=== PATIENT | female | born 1940 | race Caucasian/White ===

== ENCOUNTER → 2017-04-18 | Outpatient (CLI) | payer MEDICARE, BC ==
[~2017-04-18] MED LIST: AMLO10TA2 PO; CHOL200012 PO; GLUC1CAP13 PO; HYDR-3138 PO; LISI1TAB7 PO; MELO-184 PO; MEMA10TA PO; OMNIPAQUE 350 MG/ML, 100ML BOTTLE ONE
== END | disposition home or self-care (01) ==
LOC: CFH 09:01
PROVIDERS: ATTEND Family Medicine
DX: N83.202 Unspecified ovarian cyst, left side (principal); K76.89 Other specified diseases of liver; D18.03 Hemangioma of intra-abdominal structures; M47.894 Other spondylosis, thoracic region; Z95.0 Presence of cardiac pacemaker
CPT/HCPCS: 71020; 74177; Q9967

== ENCOUNTER → 2017-06-14 | Outpatient (CLI) | payer MEDICARE, BC ==
[~2017-06-14] MED LIST changes: -OMNIPAQUE 350 MG/ML, 100ML BOTTLE ONE
== END | disposition home or self-care (01) ==
LOC: CFH 13:01
PROVIDERS: ATTEND Family Medicine
DX: I08.3 Combined rheumatic disorders of mitral, aortic and tricuspid valves (principal); R60.0 Localized edema; I25.2 Old myocardial infarction; Z95.0 Presence of cardiac pacemaker; Z87.891 Personal history of nicotine dependence
CPT/HCPCS: 93306

== ENCOUNTER → 2017-06-25 | Outpatient (CLI) | payer MEDICARE, BC ==
[~2017-06-25] MED LIST changes: -CHOL200012 PO; +CHOL200074 PO; -HYDR-3138 PO; +HYDR-3237 PO; -MELO-184 PO; +MELO15TA24 PO
== END | disposition home or self-care (01) ==
LOC: CFH 11:38
PROVIDERS: ATTEND Family Medicine
DX: R94.4 Abnormal results of kidney function studies (principal)
CPT/HCPCS: 76770

== ENCOUNTER → 2017-07-19 | Outpatient (CLI) | payer MEDICARE, BC | END | disposition home or self-care (01) | LOC: RAD 17:20 | PROVIDERS: ATTEND Family Medicine | DX: M17.12 Unilateral primary osteoarthritis, left knee (principal) ==

== ENCOUNTER → 2017-12-06 | Outpatient (CLI) | payer MEDICARE, BC ==
[2017-12-06 10:08] LABS: BASOPHILS % (AUTO) 0 % (0-1); EOSINOPHILS # (AUTO) 0.02 x10^3/uL (0-0.4); EOSINOPHILS % (AUTO) 1 % (1-7); LYMPHOCYTES # (AUTO) 0.93 x10^3/uL (1-3.4); LYMPHOCYTES % (AUTO) 21 % (22-44); MD NO; MEAN CORPUSCULAR HEMOGLOBIN 31.6 pg (27.0-34.8); MEAN CORPUSCULAR HGB CONC 33.8 g/dL (32.4-35.8); MEAN CORPUSCULAR VOLUME 93.5 fL (80-100); MEAN PLATELET VOLUME 8.4 fL (7.4-10.4); MONOCYTES % (AUTO) 9 % (2-9); NEUTROPHILS # (AUTO) 3.08 x10^3/uL (1.8-6.8); NEUTROPHILS % (AUTO) 69 % (42-75); PLATELET COUNT 172 x10^3/uL (130-400); RED BLOOD COUNT 4.26 x10^6/uL (3.82-5.3); RED CELL DISTRIBUTION WIDTH 12.9 % (9.6-15.2)
[2017-12-06 10:13] LABS: MICROSCOPIC INDICATED
[2017-12-06 10:21] LABS: ALBUMIN 3.6 g/dL (3.4-5.0); ANION GAP 9 mmol/L (5-15); CHLORIDE 106 mmol/L (98-107); CHOLESTEROL, TOTAL 242 mg/dL (140-239); TRIGLYCERIDES 146 mg/dL (50-200); VLDL CHOLESTEROL 29 mg/dL (0-25)
[2017-12-06 10:25] LABS: % IRON SATURATION 17 % (20-55); ALANINE AMINOTRANSFERASE 34 U/L (12-78); ALKALINE PHOSPHATASE 83 U/L (45-117); BILIRUBIN,TOTAL 0.7 mg/dL (0.2-1.0); CHOL/HDL RATIO 3.6; CREATININE 1.24 mg/dL (0.55-1.02); HDL CHOL % 28 % (28-40); HDL CHOLESTEROL (DIRECT) 68 mg/dL (40-60); IRON LEVEL 61 mcg/dL (50-170); LDL CHOLESTEROL,CALCULATED 145 mg/dL (54-169); LDL/HDL RATIO 2.1 (0.5-3.0); TOTAL IRON BINDING CAPACITY 365 mcg/dL (250-450)
[2017-12-06 11:23] LABS: CALCIUM 8.7 mg/dL (8.5-10.1)
[2017-12-06 11:25] LABS: CALCIUM 8.7 mg/dL (8.5-10.1)
== END | disposition home or self-care (01) ==
LOC: LAB 09:33
PROVIDERS: ATTEND Surgery
DX: I12.9 Hypertensive chronic kidney disease with stage 1 through stage 4 chronic kidney disease, or unspecified chronic kidney disease (principal); N18.3 Chronic kidney disease, stage 3 (moderate); E78.3 Hyperchylomicronemia; I25.2 Old myocardial infarction; Z95.0 Presence of cardiac pacemaker; R79.89 Other specified abnormal findings of blood chemistry
CPT/HCPCS: 36415; 80053; 80061; 81001; 82306; 82310; 82570; 82728; 83540; 83550; 83735; 83970; 84100; 84156; 84550; 85025

== ENCOUNTER 2018-03-21 09:38 | Inpatient (IN) | payer MEDICARE, BC ==
[2018-03-19 14:59] LABS: BASOPHILS # (AUTO) 0.01 x10^3/uL (0-0.1); BASOPHILS % (AUTO) 0 % (0-1); EOSINOPHILS # (AUTO) 0.01 x10^3/uL (0-0.4); EOSINOPHILS % (AUTO) 0 % (1-7); LYMPHOCYTES # (AUTO) 1.46 x10^3/uL (1-3.4); LYMPHOCYTES % (AUTO) 31 % (22-44); MD NO; MEAN CORPUSCULAR HGB CONC 34.3 g/dL (32.4-35.8); MEAN CORPUSCULAR VOLUME 93.4 fL (80-100); MEAN PLATELET VOLUME 8.4 fL (7.4-10.4); MONOCYTES # (AUTO) 0.33 x10^3/uL (0.2-0.8); MONOCYTES % (AUTO) 7 % (2-9); NEUTROPHILS # (AUTO) 2.97 x10^3/uL (1.8-6.8); NEUTROPHILS % (AUTO) 62 % (42-75); PLATELET COUNT 199 x10^3/uL (130-400); RED BLOOD COUNT 4.44 x10^6/uL (3.82-5.3); RED CELL DISTRIBUTION WIDTH 13.4 % (9.6-15.2)
[2018-03-19 15:10] LABS: ALANINE AMINOTRANSFERASE 31 U/L (12-78); ALBUMIN 3.7 g/dL (3.4-5.0); ANION GAP 8 mmol/L (5-15); CALCIUM 9.2 mg/dL (8.5-10.1); CHLORIDE 106 mmol/L (98-107)
[2018-03-19 15:12] LABS: ALKALINE PHOSPHATASE 75 U/L (45-117); BILIRUBIN,TOTAL 0.8 mg/dL (0.2-1.0); CREATININE 1.25 mg/dL (0.55-1.02); TOTAL PROTEIN 7.4 g/dL (6.4-8.2)
[2018-03-19 15:15] LABS: INTERNATIONAL NORMALIZED RATIO 0.95 (0.93-1.1); PROTHROMBIN TIME 9.9 Seconds (9.6-11.5)
[2018-03-19 15:50] LABS: HEMOGLOBIN A1C 5.8 % (4.2-6.3)
[~2018-03-21] VITALS: Ht 172.7 cm; Wt 74.0 kg
[~2018-03-21 09:38] MED LIST changes: +EPINEPHRINE 1 MG/ML, 1ML ONE; +KETOROLAC 60 MG/2 ML ONE; +ROPIvacaine/PF 0.5%, 20 ML ONE; +SODIUM CHLORIDE 0.9% 100 ML ONE; +TRANEXAMIC ACID 100 MG/ML, 10ML ONE
[2018-03-21] MEDS ORDERED: VANCOMYCIN PER PHARMACY MC ONE (09:47)
[2018-03-21] MEDS ORDERED: LACTATED RINGERS 1,000 ML IV SCH (09:59)
[2018-03-21] MEDS ORDERED: OXYcodone IR 5MG TABLET PO ONE (10:00)
[2018-03-21] MEDS ORDERED: VANCOMYCIN 1,400 MG in SODIUM CHLORIDE 0.9% 250 ML IV ONE (10:00)
[2018-03-21] MEDS ORDERED: ONDANSETRON ODT 8 MG PO ONE (10:00)
[2018-03-21] MEDS ORDERED: ACETAMINOPHEN 500 MG TABLET PO ONE (10:00)
[2018-03-21] MEDS ORDERED: PHARMACOKINETIC CONSULTATION MC ONE (10:00)
[2018-03-21] MEDS ORDERED: GABAPENTIN 300 MG CAPSULE PO ONE (10:00)
[2018-03-21 10:24] VITALS: BP 199/77
[2018-03-21] MEDS ORDERED: HALOPERIDOL 5 MG/ML IV PRN (11:00)
[2018-03-21] MEDS ORDERED: hydrALAzine 20 MG/ML, 1ML IV PRN (11:00)
[2018-03-21] MEDS ORDERED: METOPROLOL 1 MG/ML, 5ML IV PRN (11:00)
[2018-03-21] MEDS ORDERED: PROMETHAZINE 25 MG/ML, 1ML IV PRN (11:00)
[2018-03-21] MEDS ORDERED: OXYcodone 5 MG/5 ML ORAL.SOL UDC PO PRN (11:00)
[2018-03-21] MEDS ORDERED: ALBUTEROL SULFATE 2.5 MG/3 ML NPPB PRN (11:00)
[2018-03-21] MEDS ORDERED: EPHEDRINE 50 MG/ML, 1ML IVPush PRN (11:00)
[2018-03-21] MEDS ORDERED: LABETALOL 5MG/ML, 20ML IV PRN (11:00)
[2018-03-21] MEDS ORDERED: FENTANYL PF 250 MCG/5ML ONE (11:21)
[2018-03-21] MEDS ORDERED: GLYCOPYRROLATE 0.2MG/1ML, 5ML ONE (11:51)
[2018-03-21] MEDS ORDERED: NEOSTIGMINE 1 MG/ML, 10ML ONE (11:51)
[2018-03-21] MEDS ORDERED: ZOLPIDEM 5MG TABLET PO PRN (12:00)
[2018-03-21] MEDS ORDERED: CEFAZOLIN 1,000 MG ONE (12:00)
[2018-03-21] MEDS ORDERED: MAGNESIUM HYDROXIDE 8%, 30ML UDC PO PRN (12:00)
[2018-03-21] MEDS ORDERED: OXYcodone IR 5MG TABLET PO PRN (12:00)
[2018-03-21] MEDS ORDERED: ONDANSETRON 4 MG TABLET PO PRN (12:00)
[2018-03-21] MEDS ORDERED: BISACODYL 10 MG SUPP PR PRN (12:00)
[2018-03-21] MEDS ORDERED: HYDROcodone/APAP 5/325 TABLET PO PRN (12:00)
[2018-03-21] MEDS ORDERED: PROPOFOL 10 MG/ML, 20ML ONE ×2 (12:00→12:03)
[2018-03-21] MEDS ORDERED: SENNA/DOCUSATE TABLET PO PRN (12:00)
[2018-03-21] MEDS ORDERED: ONDANSETRON 2MG/ML, 2ML IV PRN (12:00)
[2018-03-21] MEDS ORDERED: DIPHENHYDRAMINE 25 MG CAPSULE PO PRN (12:00)
[2018-03-21] MEDS ORDERED: HYDROmorphone 2 MG/ML, 1ML IV PRN (12:00)
[2018-03-21] MEDS ORDERED: ROCURONIUM 10MG/ML,5ML ONE (12:03)
[2018-03-21] MEDS ORDERED: VANCOMYCIN 1,000 MG ONE (12:37)
[2018-03-21] MEDS ORDERED: DEXAMETHASONE 4 MG/ML, 1ML ONE (13:22)
[2018-03-21] MEDS ORDERED: MEPERIDINE/PF 25MG/0.5ML ONE ×2 (13:35→14:11)
[2018-03-21] MEDS ORDERED: FENTANYL PF 100 MCG/2ML ONE (13:35)
[2018-03-21] MEDS ORDERED: MORPHINE SULFATE 4 MG/ML, 1ML ONE ×2 (13:35→14:11)
[2018-03-21] MEDS: FENTANYL PF 100 MCG/2ML IV PRN ×3 (13:42→14:05)
[2018-03-21] MEDS: MORPHINE SULFATE 4 MG/ML, 1ML IVPush PRN ×2 (13:45→13:50)
[2018-03-21] MEDS ORDERED: OXYcodone 5 MG/5 ML ORAL.SOL UDC ONE (13:46)
[2018-03-21] MEDS ORDERED: MEPERIDINE/PF 25MG/0.5ML IVPush PRN (14:30)
[2018-03-21 14:50] VITALS: BP 148/64
[2018-03-21] MEDS ORDERED: SCOPOLAMINE PATCH, 1.5MG PATCH.TD72 TD ONE (16:00)
[2018-03-21] MEDS: NS + 20MEQ KCL 1,000 ML IV SCH (16:46)
[2018-03-21] MEDS: ASPIRIN 81 MG TABLET EC PO SCH (16:46)
[2018-03-21 19:35] VITALS: BP 154/78
[2018-03-21] MEDS: DOCUSATE 100 MG CAPSULE PO SCH (20:49)
[2018-03-21] MEDS: MEMANTINE 10MG TABLET PO SCH (20:49)
[2018-03-21] MEDS: AMLODIPINE 5 MG TABLET PO SCH (20:50)
[2018-03-21] MEDS: CEFAZOLIN PMX 2GM/50ML 50 ML IVPB SCH (20:50)
[2018-03-22 00:50] VITALS: BP 175/74
[2018-03-22] MEDS: NS + 20MEQ KCL 1,000 ML IV SCH ×2 (04:30→18:33)
[2018-03-22] MEDS: CEFAZOLIN PMX 2GM/50ML 50 ML IVPB SCH (04:36)
[2018-03-22 04:51] VITALS: BP 168/66
[2018-03-22] MEDS: ASPIRIN 81 MG TABLET EC PO SCH ×2 (05:19→18:37)
[2018-03-22] MEDS ORDERED: DEXAMETHASONE 4 MG/ML, 1ML IVPush SCH (06:00)
[2018-03-22 06:31] VITALS: BP 182/51
[2018-03-22] MEDS: DOCUSATE 100 MG CAPSULE PO SCH ×2 (08:57→20:48)
[2018-03-22] MEDS: MEMANTINE 10MG TABLET PO SCH ×2 (08:57→20:56)
[2018-03-22] MEDS: LISINOPRIL 20 MG TABLET PO SCH (08:57)
[2018-03-22] MEDS: HYDROCHLOROTHIAZIDE 25 MG TABLET PO SCH (08:57)
[2018-03-22] MEDS ORDERED: LISINOPRIL 20 MG TABLET PO SCH (09:00)
[2018-03-22] MEDS ORDERED: OXYC5TAB2 PO (10:26)
[2018-03-22] MEDS ORDERED: TRAM50TA2 PO (10:27)
[2018-03-22] MEDS ORDERED: MELO7.5T31 PO (10:28)
[2018-03-22 14:05] VITALS: BP 107/60
[2018-03-22 20:46] VITALS: BP 149/60
[2018-03-22] MEDS: AMLODIPINE 5 MG TABLET PO SCH (20:48)
[2018-03-22] MEDS: ACETAMINOPHEN 650 MG/20.3 ML UDC PO PRN (20:48)
[2018-03-23 01:49] VITALS: BP 164/70
[2018-03-23] MEDS: NS + 20MEQ KCL 1,000 ML IV SCH (03:35)
[2018-03-23] MEDS: ACETAMINOPHEN 650 MG/20.3 ML UDC PO PRN (05:04)
[2018-03-23] MEDS: ASPIRIN 81 MG TABLET EC PO SCH (06:00)
[2018-03-23 07:13] VITALS: BP 173/66
[2018-03-23] MEDS: HYDROCHLOROTHIAZIDE 25 MG TABLET PO SCH (09:15)
[2018-03-23] MEDS: MEMANTINE 10MG TABLET PO SCH (09:15)
[2018-03-23] MEDS: LISINOPRIL 20 MG TABLET PO SCH (09:15)
[2018-03-23] MEDS: DOCUSATE 100 MG CAPSULE PO SCH (09:15)
== END 2018-03-23 11:40 | disposition home or self-care (01) | DRG 469 ==
LOC: OUT 09:38 → ORIP 11:45 → 4NOR 14:44
PROVIDERS: ADMIT Orthopaedic Surgery; ATTEND Orthopaedic Surgery
PROC: 0SRC0J9 Replacement of Right Knee Joint with Synthetic Substitute, Cemented, Open Approach (ICD-10-PCS; principal; 2018-03-21 12:15)
DX: M17.31 Unilateral post-traumatic osteoarthritis, right knee (principal); N17.0 Acute kidney failure with tubular necrosis; F03.90 Unspecified dementia, unspecified severity, without behavioral disturbance, psychotic disturbance, mood disturbance, and anxiety; I10 Essential (primary) hypertension; I25.10 Atherosclerotic heart disease of native coronary artery without angina pectoris; Z88.0 Allergy status to penicillin; Z95.0 Presence of cardiac pacemaker
CPT/HCPCS: 36415; 80053; 83036; 85014; 85018; 85025; 85610; 85730; 87081; 93005; C1713; J0171; J0690; J1100; J1885; J2704; J2710; J2795; J3010; J3370; J3480; J3490; Q0162; C1776; J7050; J7120; Q0163

== ENCOUNTER 2019-03-05 12:28 | Emergency (ER) | payer MEDICARE, BC ==
[~2019-03-05] VITALS: Ht 172.7 cm; Wt 72.7 kg
[~2019-03-05 12:28] MED LIST changes: -AMLO10TA2 PO; +AMLO10TA8 PO; -EPINEPHRINE 1 MG/ML, 1ML ONE; -KETOROLAC 60 MG/2 ML ONE; +MELO7.5T31 PO; +OXYC5TAB2 PO; -ROPIvacaine/PF 0.5%, 20 ML ONE; -SODIUM CHLORIDE 0.9% 100 ML ONE; +TRAM50TA2 PO; -TRANEXAMIC ACID 100 MG/ML, 10ML ONE
--- NOTE | 2019-03-05 12:50 | NUR ---
PATIENT PRESENTS TO ED TODAY FOR 4-5 SYNCOPAL EPISODES PER SPOUSE AT BEDSIDE, DENIES PAIN/HITTING HEAD, PATIENT TAKING ABX (KEFLEX) FOR RECENT TOE INFECTION (LT MIDDLE TOE), PATIENT AWAKE, ALERT, ORIENTED X1, PATIENT RESPONDS TO VOICE AND FOLLOWS COMMANDS, BASELINE CONFUSION BUT WORSE PAST 2 DAYS PER SPOUSE, PLAYER MANAGER ON PATIENT, AWAITING ORDERS. CALL LIGHT WITHIN REACH. Addendum: 03/05/19 at 1316 by REFUGIO PATIENT SPOUSE REPORTS LOC FOR 1-2 MIN. PATIENT NEVER FELL, LOWERED SELF ON BED.
--- NOTE | 2019-03-05 13:34 | NUR ---
PATIENT IN CT AT THIS TIME.
--- NOTE | 2019-03-05 14:01 | NUR ---
LAB AT BEDSIDE.
[2019-03-05 14:20] LABS: BASOPHILS # (AUTO) 0.02 x10^3/uL (0-0.1); BASOPHILS % (AUTO) 0 % (0-1); EOSINOPHILS # (AUTO) 0.02 x10^3/uL (0-0.4); EOSINOPHILS % (AUTO) 0 % (1-7); LYMPHOCYTES % (AUTO) 22 % (22-44); MD NO; MEAN CORPUSCULAR HEMOGLOBIN 32.2 pg (27.0-34.8); MEAN CORPUSCULAR HGB CONC 33.9 g/dL (32.4-35.8); MEAN PLATELET VOLUME 7.9 fL (7.4-10.4); MONOCYTES # (AUTO) 0.43 x10^3/uL (0.2-0.8); MONOCYTES % (AUTO) 9 % (2-9); NEUTROPHILS # (AUTO) 3.41 x10^3/uL (1.8-6.8); NEUTROPHILS % (AUTO) 69 % (42-75); PLATELET COUNT 170 x10^3/uL (130-400); RED BLOOD COUNT 3.96 x10^6/uL (3.82-5.3); RED CELL DISTRIBUTION WIDTH 13.3 % (9.6-15.2)
--- NOTE | 2019-03-05 14:20 | NUR ---
STRAIGHT CATH COMPLETED, WALKED TO LAB. AWAITING RESULTS. VS UPDATED IN CHART, PATIENT/FAMILY UPDATED ON POC. NAD NOTED.
[2019-03-05 14:28] LABS: ALANINE AMINOTRANSFERASE 23 U/L (12-78); ALBUMIN 3.3 g/dL (3.4-5.0); ANION GAP 9 mmol/L (5-15); CALCIUM 8.7 mg/dL (8.5-10.1); CHLORIDE 108 mmol/L (98-107); CREATININE 1.17 mg/dL (0.55-1.02)
[2019-03-05 14:31] LABS: ALKALINE PHOSPHATASE 57 U/L (45-117); BILIRUBIN,TOTAL 0.7 mg/dL (0.2-1.0); TOTAL PROTEIN 6.4 g/dL (6.4-8.2)
[2019-03-05 14:55] LABS: MICROSCOPIC NOT IND
[2019-03-05 14:56] LABS: CULTURE INDICATED? NO
[2019-03-05 15:05] LABS: AMPHETAMINE SCREEN, URINE Negative (Negative); BARBITURATE SCREEN, URINE Negative (Negative); BENZODIAZEPINE SCREEN, URINE Positive (Negative); CANNABINOID SCREEN, URINE Negative (Negative); COCAINE SCREEN, URINE Negative (Negative); METHADONE SCREEN, URINE Negative (Negative); OPIATE SCREEN, URINE Negative (Negative)
--- NOTE | 2019-03-05 15:50 | NUR ---
THIS FLOAT RN AT BEDSIDE TO DC PT FOR PRIMARY RNANN. PT AND SPOUSE VERBALIZED UNDERSTANDING TO DC INSTRUCTIONS.
[2019-03-05 15:52] VITALS: BP 162/59
== END 2019-03-05 15:54 | disposition home or self-care (01) ==
LOC: ED 14:09
DX: F03.90 Unspecified dementia, unspecified severity, without behavioral disturbance, psychotic disturbance, mood disturbance, and anxiety (principal); R53.1 Weakness; I10 Essential (primary) hypertension; I25.2 Old myocardial infarction; E78.00 Pure hypercholesterolemia, unspecified; Z88.8 Allergy status to other drugs, medicaments and biological substances; Z90.89 Acquired absence of other organs; Z87.891 Personal history of nicotine dependence
CPT/HCPCS: 36415; 70450; 80053; 80307; 81003; 82140; 85025; 93005; 99284

== ENCOUNTER 2019-05-27 18:01 | Emergency (ER) | payer MEDICARE, BC ==
[~2019-05-27] VITALS: Ht 172.7 cm; Wt 71.1 kg
[~2019-05-27 18:01] MED LIST changes: +LISI1TAB20 PO; -LISI1TAB7 PO
[2019-05-27] MEDS ORDERED: METOPROLOL TARTRATE 50 MG TABLET PO ONE (18:30)
--- NOTE | 2019-05-27 18:31 | NUR ---
UPON ENTERING ROOM PTS FOUND IN THE CABINETS. IS ASKED IF HE NEEDS ANY HELP. DECLINES AND IS SEEN PLACING 2X2 GAUZE IN HIS POCKET. PT PLACED ON NIBP AND PULSE OX MONITORING. ASKS WHAT FOR WE ARE GOING TO BE QUICK IN AND OUT. EDUCATUION PROVIDED. STATES "AREN'T YOU JUST GOING TO GIVE HER A FEEL GOOD PILLS AND LET US GET OUT OF HERE?" ANSWERS ALL QUESTIONS FOR ASSESSMENT DISPITE BEING ASKED TO LET THE PATIENT.
[2019-05-27] MEDS ORDERED: METOPROLOL TARTRATE 50 MG TABLET ONE (18:36)
[2019-05-27 19:00] LABS: BASOPHILS # (AUTO) 0.01 x10^3/uL (0-0.1); BASOPHILS % (AUTO) 0 % (0-1); EOSINOPHILS # (AUTO) 0.02 x10^3/uL (0-0.4); EOSINOPHILS % (AUTO) 0 % (1-7); LYMPHOCYTES # (AUTO) 1.02 x10^3/uL (1-3.4); LYMPHOCYTES % (AUTO) 22 % (22-44); MD NO; MEAN CORPUSCULAR HEMOGLOBIN 32.4 pg (27.0-34.8); MEAN CORPUSCULAR HGB CONC 33.5 g/dL (32.4-35.8); MEAN CORPUSCULAR VOLUME 96.7 fL (80-100); MEAN PLATELET VOLUME 8.2 fL (7.4-10.4); MONOCYTES # (AUTO) 0.47 x10^3/uL (0.2-0.8); MONOCYTES % (AUTO) 10 % (2-9); NEUTROPHILS # (AUTO) 3.09 x10^3/uL (1.8-6.8); NEUTROPHILS % (AUTO) 67 % (42-75); PLATELET COUNT 171 x10^3/uL (130-400); RED BLOOD COUNT 4.29 x10^6/uL (3.82-5.3); RED CELL DISTRIBUTION WIDTH 13.3 % (9.6-15.2)
[2019-05-27 19:06] LABS: ALBUMIN 3.8 g/dL (3.4-5.0); ANION GAP 6 mmol/L (5-15); CALCIUM 9.2 mg/dL (8.5-10.1); CHLORIDE 109 mmol/L (98-107); CREATININE 1.06 mg/dL (0.55-1.02)
[2019-05-27 19:10] LABS: TROPONIN I < 0.015 ng/mL (0.000-0.045)
[2019-05-27 19:11] VITALS: BP 181/87
[2019-05-27] MEDS ORDERED: CLOP75TA52 PO (19:11)
[2019-05-27] MEDS ORDERED: LOSA25TA25 PO (19:11)
--- NOTE | 2019-05-27 19:12 | NUR ---
PT RESTING ON GURNEY, SPOUSE AT BEDSIDE, MONITORS IN PLACE, CALL LIGHT WITHIN REACH
--- NOTE | 2019-05-27 19:28 | NUR ---
pt up to rr with standby assist, tolerated transfer well. assisted pt back to room,erp at bedside for recheck
== END 2019-05-27 19:40 | disposition home or self-care (01) ==
LOC: ED 19:29
DX: I10 Essential (primary) hypertension (principal); E78.00 Pure hypercholesterolemia, unspecified; F03.90 Unspecified dementia, unspecified severity, without behavioral disturbance, psychotic disturbance, mood disturbance, and anxiety; Z90.89 Acquired absence of other organs; Z95.0 Presence of cardiac pacemaker; Z87.891 Personal history of nicotine dependence
CPT/HCPCS: 36415; 80048; 82040; 84484; 85025; 99283

== ENCOUNTER 2019-08-23 16:38 | Emergency (ER) | payer MEDICARE, BC ==
[~2019-08-23] VITALS: Ht 175.3 cm; Wt 71.8 kg
[~2019-08-23 16:38] MED LIST changes: +CLOP75TA52 PO; +LOSA25TA25 PO
[2019-08-23 17:00] VITALS: BP 158/56
[2019-08-23] MEDS ORDERED: ASPI-496 PO (17:00)
[2019-08-23] MEDS ORDERED: CARV6.2512 PO (17:00)
--- NOTE | 2019-08-23 17:21 | NUR ---
PT HERE WITH C/O LUQ ABDOMINAL PAIN STARTING APPROX. 2 HOURS AGO. PT STATES INTERMITTENT. PT CONFUSED, BASELINE FOR PT, HX DEMENTIA. AT BEDSIDE. SIDERAIL X [address], CALL LIGHT WITHIN REACH. PT DRESSED IN GOWN AND ATTACHED TO MONITOR. MD TO BEDSIDE. XRAY TO BEDSIDE AND PT TO XRAY.
[2019-08-23] MEDS ORDERED: SODIUM CHLORIDE FLUSH 10ML SYR IVF ONE (17:30)
[2019-08-23 17:51] LABS: BASOPHILS # (AUTO) 0.01 x10^3/uL (0-0.1); BASOPHILS % (AUTO) 0 % (0-1); EOSINOPHILS # (AUTO) 0.07 x10^3/uL (0-0.4); EOSINOPHILS % (AUTO) 2 % (1-7); LYMPHOCYTES # (AUTO) 0.96 x10^3/uL (1-3.4); LYMPHOCYTES % (AUTO) 26 % (22-44); MD NO; MEAN CORPUSCULAR HEMOGLOBIN 32.8 pg (27.0-34.8); MEAN CORPUSCULAR HGB CONC 33.6 g/dL (32.4-35.8); MEAN CORPUSCULAR VOLUME 97.7 fL (80-100); MEAN PLATELET VOLUME 8.3 fL (7.4-10.4); MONOCYTES # (AUTO) 0.52 x10^3/uL (0.2-0.8); MONOCYTES % (AUTO) 14 % (2-9); NEUTROPHILS # (AUTO) 2.08 x10^3/uL (1.8-6.8); NEUTROPHILS % (AUTO) 57 % (42-75); PLATELET COUNT 160 x10^3/uL (130-400); RED BLOOD COUNT 3.77 x10^6/uL (3.82-5.3); RED CELL DISTRIBUTION WIDTH 13.8 % (9.6-15.2)
[2019-08-23 17:53] LABS: ALANINE AMINOTRANSFERASE 26 U/L (12-78); ALBUMIN 3.2 g/dL (3.4-5.0); ANION GAP 5 mmol/L (5-15); CALCIUM 8.7 mg/dL (8.5-10.1); CHLORIDE 109 mmol/L (98-107); CREATININE 1.45 mg/dL (0.55-1.02)
[2019-08-23 17:58] LABS: ALKALINE PHOSPHATASE 75 U/L (45-117); BILIRUBIN,TOTAL 0.7 mg/dL (0.2-1.0); TOTAL PROTEIN 6.6 g/dL (6.4-8.2); TROPONIN I < 0.015 ng/mL (0.000-0.045)
--- NOTE | 2019-08-23 18:22 | NUR ---
PT AMBULATORY TO RESTROOM WITH STEADY GAIT FOR UA.
--- NOTE | 2019-08-23 19:00 | NUR ---
LAB CALLED REGARDING DELAY IN URINE RESULTS, PER LAB, UA WILL NEED CULTURE.
[2019-08-23 19:03] LABS: CULTURE INDICATED? YES; MICROSCOPIC INDICATED
--- NOTE | 2019-08-23 19:23 | NUR ---
MD TO BEDSIDE TO DISCUSS POC, PLAN FOR D/C HOME WITH PO ABX.
--- NOTE | 2019-08-23 19:24 | NUR ---
Patient/Caregiver given discharge instructions and they have confirmed that they understand the instructions. Patient ambulatory with steady gait.
== END 2019-08-23 19:39 | disposition home or self-care (01) ==
LOC: ED 17:10
DX: N30.00 Acute cystitis without hematuria (principal); I10 Essential (primary) hypertension; E78.00 Pure hypercholesterolemia, unspecified; I25.2 Old myocardial infarction; Z90.49 Acquired absence of other specified parts of digestive tract; Z95.0 Presence of cardiac pacemaker; Z87.891 Personal history of nicotine dependence
CPT/HCPCS: 36415; 74022; 80053; 81001; 83690; 84484; 85025; 87077; 87086; 87186; 93005; 99284

== ENCOUNTER 2019-12-01 13:23 | Emergency (ER) | payer MEDICARE, BC ==
[~2019-12-01] VITALS: Ht 177.8 cm; Wt 73.1 kg
[~2019-12-01 13:23] MED LIST changes: +ASPI-496 PO; +CARV6.2512 PO
[2019-12-01 14:06] LABS: BASOPHILS # (AUTO) 0.03 x10^3/uL (0-0.1); BASOPHILS % (AUTO) 0 % (0-1); EOSINOPHILS # (AUTO) 0.12 x10^3/uL (0-0.4); EOSINOPHILS % (AUTO) 2 % (1-7); LYMPHOCYTES # (AUTO) 1.44 x10^3/uL (1-3.4); LYMPHOCYTES % (AUTO) 21 % (22-44); MD NO; MEAN CORPUSCULAR HEMOGLOBIN 32.2 pg (27.0-34.8); MEAN CORPUSCULAR HGB CONC 33.6 g/dL (32.4-35.8); MEAN CORPUSCULAR VOLUME 95.8 fL (80-100); MEAN PLATELET VOLUME 8.4 fL (7.4-10.4); MONOCYTES % (AUTO) 12 % (2-9); NEUTROPHILS # (AUTO) 4.34 x10^3/uL (1.8-6.8); NEUTROPHILS % (AUTO) 65 % (42-75); PLATELET COUNT 180 x10^3/uL (130-400); RED CELL DISTRIBUTION WIDTH 13.8 % (9.6-15.2)
[2019-12-01 14:12] LABS: ALANINE AMINOTRANSFERASE 27 U/L (12-78); ALBUMIN 3.4 g/dL (3.4-5.0); ANION GAP 8 mmol/L (5-15); CALCIUM 8.8 mg/dL (8.5-10.1); CHLORIDE 105 mmol/L (98-107); CREATININE 1.12 mg/dL (0.55-1.02)
[2019-12-01 14:14] LABS: ALKALINE PHOSPHATASE 77 U/L (45-117); BILIRUBIN,TOTAL 1.2 mg/dL (0.2-1.0)
[2019-12-01 14:18] LABS: INTERNATIONAL NORMALIZED RATIO 0.94 (0.93-1.1)
--- NOTE | 2019-12-01 15:47 | NUR ---
executive administrative assistant: Pt to ED room 21 from lobby at this time
[2019-12-01 15:59] VITALS: BP 148/61
--- NOTE | 2019-12-01 16:02 | NUR ---
FIRST CONTACT WITH PT. PT C/O BLOOD IN STOOL; "HEAVY RECTAL BLEEDING" STARTED THIS AM DENIES ABD PAIN; ON PLAVIX AND ASPIRIN. PT DENIES ANY PAIN. RESPS EVEN AND UNLABORED. BP/SPO2 MONITORS IN PLACE. CALL LIGHT WITHIN REACH.
--- NOTE | 2019-12-01 16:27 | NUR ---
Patient given discharge instructions and they have confirmed that they understand the instructions.
== END 2019-12-01 16:28 ==
LOC: ED 16:22
DX: K62.5 Hemorrhage of anus and rectum (principal); I10 Essential (primary) hypertension; I25.2 Old myocardial infarction; E78.00 Pure hypercholesterolemia, unspecified; Z90.49 Acquired absence of other specified parts of digestive tract; Z98.51 Tubal ligation status; Z87.891 Personal history of nicotine dependence
CPT/HCPCS: 36415; 80053; 85025; 85610; 85730; 99283

== ENCOUNTER 2020-03-22 12:26 | Emergency (ER) | payer MEDICARE, BC ==
[~2020-03-22] VITALS: Ht 177.8 cm; Wt 74.0 kg
[2020-03-22 12:29] VITALS: BP 160/43
--- NOTE | 2020-03-22 12:48 | NUR ---
FIRST CONTACT WITH PT. PT HAS L FOREARM LAC AFTER FALL LAST NIGHT, DENIES LOC. DENIES ANY OTHER SX. RESPS EVEN AND UNLABORED. BLEEDING CONTROLLED.
[2020-03-22] MEDS ORDERED: DIPH,PERTUSS(ACELL),TET VAC/PF 0.5 ML IM-VACC ONE ×2 (12:59→13:00)
--- NOTE | 2020-03-22 13:04 | NUR ---
TDAP GIVEN AT THIS TIME. PT TOLERATED WELL.
--- NOTE | 2020-03-22 13:16 | NUR ---
EMT AT BEDSIDE TO CLEAN WOUND AT THIS TIME. PT TOLERATED WELL.
--- NOTE | 2020-03-22 13:35 | NUR ---
Patient's given discharge instructions and they have confirmed that they understand the instructions.
== END 2020-03-22 13:37 | disposition home or self-care (01) ==
LOC: ED 13:30
DX: S51.812A Laceration without foreign body of left forearm, initial encounter (principal); I25.2 Old myocardial infarction; E78.00 Pure hypercholesterolemia, unspecified; I10 Essential (primary) hypertension; Z98.51 Tubal ligation status; Z95.0 Presence of cardiac pacemaker; Z87.891 Personal history of nicotine dependence; W19.XXXA Unspecified fall, initial encounter; Y93.89 Activity, other specified; Y92.098 Other place in other non-institutional residence as the place of occurrence of the external cause; Y99.8 Other external cause status
CPT/HCPCS: 90471; 90715; 99283

== ENCOUNTER 2020-04-10 12:20 | Emergency (ER) | payer MEDICARE, BC ==
[~2020-04-10] VITALS: Ht 175.3 cm; Wt 69.0 kg
--- NOTE | 2020-04-10 13:00 | NUR ---
PT IN HOSPITAL GOWN. PT UNABLE TO ANSWER QUESTIONS, PT IS AT BEDSIDE AND ABLE TO ANSWER FOR PT.
[2020-04-10 13:15] LABS: BASOPHILS # (AUTO) 0.02 x10^3/uL (0-0.1); BASOPHILS % (AUTO) 0 % (0-1); EOSINOPHILS # (AUTO) 0.04 x10^3/uL (0-0.4); EOSINOPHILS % (AUTO) 1 % (1-7); LYMPHOCYTES # (AUTO) 1.26 x10^3/uL (1-3.4); LYMPHOCYTES % (AUTO) 23 % (22-44); MD NO; MEAN CORPUSCULAR HEMOGLOBIN 31.8 pg (27.0-34.8); MEAN CORPUSCULAR HGB CONC 33.4 g/dL (32.4-35.8); MEAN PLATELET VOLUME 8.1 fL (7.4-10.4); MONOCYTES % (AUTO) 11 % (2-9); NEUTROPHILS # (AUTO) 3.65 x10^3/uL (1.8-6.8); NEUTROPHILS % (AUTO) 66 % (42-75); PLATELET COUNT 202 x10^3/uL (130-400); RED BLOOD COUNT 4.29 x10^6/uL (3.82-5.3); RED CELL DISTRIBUTION WIDTH 13.9 % (9.6-15.2)
[2020-04-10 13:26] LABS: ALANINE AMINOTRANSFERASE 26 U/L (12-78); ALBUMIN 3.5 g/dL (3.4-5.0); ANION GAP 6 mmol/L (5-15); CHLORIDE 104 mmol/L (98-107); CREATININE 1.42 mg/dL (0.55-1.02)
[2020-04-10 13:30] LABS: ALKALINE PHOSPHATASE 73 U/L (45-117); BILIRUBIN,TOTAL 0.6 mg/dL (0.2-1.0); TOTAL PROTEIN 7.4 g/dL (6.4-8.2); TROPONIN I < 0.015 ng/mL (0.000-0.045)
[2020-04-10] MEDS ORDERED: SODIUM CHLORIDE FLUSH 10ML SYR IVF ONE (14:00)
[2020-04-10 14:15] VITALS: BP 146/56
--- NOTE | 2020-04-10 14:20 | NUR ---
STRAIGHT CATH DONE, URINE WALKED TO LAB. PT ON VITALS MONITOR. WILL CONTINUE TO MONITOR.
[2020-04-10 14:28] LABS: MICROSCOPIC NOT IND
--- NOTE | 2020-04-10 14:30 | NUR ---
break RN note: report taken from MAURO Mackenzie pt resting on guveronique, a&o, resps even and unlabored. pt denies pain. pt denies any needs at this time. awaiting ua results and dispo.
--- NOTE | 2020-04-10 14:48 | NUR ---
all results back, chart up for recheck. awaiting MD and dispo.
--- NOTE | 2020-04-10 15:02 | NUR ---
report back to primary RN Chris, awaiting dc paperwork from provider at this time.
== END 2020-04-10 15:30 | disposition home or self-care (01) ==
LOC: ED 15:00
DX: R10.13 Epigastric pain (principal); R10.12 Left upper quadrant pain; M79.89 Other specified soft tissue disorders; R94.31 Abnormal electrocardiogram [ECG] [EKG]; I11.0 Hypertensive heart disease with heart failure; E78.5 Hyperlipidemia, unspecified; I25.2 Old myocardial infarction
CPT/HCPCS: 36415; 76700; 80053; 81003; 83690; 84484; 85025; 93005; 99285

== ENCOUNTER 2020-04-27 13:21 | Outpatient (CLI) | payer MEDICARE, BC ==
[2020-07-24] MEDS ORDERED: LEVE500T53 PO (12:07)
== END 2020-04-27 23:59 | disposition home or self-care (01) ==
LOC: CFH 13:21
PROVIDERS: ATTEND Family Medicine
DX: K76.89 Other specified diseases of liver (principal); N94.89 Other specified conditions associated with female genital organs and menstrual cycle; R10.84 Generalized abdominal pain
CPT/HCPCS: 74176; 82565

== ENCOUNTER → 2020-05-17 | Outpatient (CLI) | payer MEDICARE, BC | END | disposition home or self-care (01) | LOC: CFH 16:04 | PROVIDERS: ATTEND Family Medicine | DX: N94.89 Other specified conditions associated with female genital organs and menstrual cycle (principal); R93.89 Abnormal findings on diagnostic imaging of other specified body structures | CPT/HCPCS: 76830 ==

== ENCOUNTER 2020-05-26 17:19 | Inpatient (IN) | payer MEDICARE, BC ==
[~2020-05-26] VITALS: Ht 170.2 cm; Wt 69.6 kg
[2020-05-26 18:00] LABS: BASOPHILS # (AUTO) 0.02 x10^3/uL (0-0.1); BASOPHILS % (AUTO) 0 % (0-1); EOSINOPHILS # (AUTO) 0.11 x10^3/uL (0-0.4); EOSINOPHILS % (AUTO) 2 % (1-7); LYMPHOCYTES # (AUTO) 1.32 x10^3/uL (1-3.4); LYMPHOCYTES % (AUTO) 22 % (22-44); MD NO; MEAN CORPUSCULAR HEMOGLOBIN 31.2 pg (27.0-34.8); MEAN CORPUSCULAR HGB CONC 33.4 g/dL (32.4-35.8); MEAN PLATELET VOLUME 8.4 fL (7.4-10.4); MONOCYTES # (AUTO) 0.64 x10^3/uL (0.2-0.8); MONOCYTES % (AUTO) 11 % (2-9); NEUTROPHILS # (AUTO) 3.94 x10^3/uL (1.8-6.8); NEUTROPHILS % (AUTO) 65 % (42-75); PLATELET COUNT 192 x10^3/uL (130-400); RED BLOOD COUNT 4.13 x10^6/uL (3.82-5.3); RED CELL DISTRIBUTION WIDTH 12.7 % (9.6-15.2)
[2020-05-26 18:10] LABS: ALANINE AMINOTRANSFERASE 34 U/L (12-78); ALBUMIN 3.4 g/dL (3.4-5.0); ANION GAP 9 mmol/L (5-15); CALCIUM 8.8 mg/dL (8.5-10.1); CHLORIDE 103 mmol/L (98-107)
[2020-05-26 18:15] LABS: ALKALINE PHOSPHATASE 74 U/L (45-117); BILIRUBIN,TOTAL 0.8 mg/dL (0.2-1.0); CREATININE 1.87 mg/dL (0.55-1.02); TOTAL PROTEIN 7.5 g/dL (6.4-8.2); TROPONIN I < 0.015 ng/mL (0.000-0.045)
--- NOTE | 2020-05-26 19:01 | NUR ---
LATE ENTRY DUE TO PATIENT CARE: PATIENT IS AN 79YO FEMALE WITH HX OF DEMENTIA. HX RECEIVED FROM . PER " SHE HAS COLLAPSED TWICE. COMPLETELY BLACKED OUT FOR APPROXIMATELY 10 SECONDS. SHE GOT UP FROM SITTING DOWN. THE FIRST TIME SHE OPENED THE REFRIDGERATOR DOOR AND JUST BLACKED OUT. IT'S HAPPENED BEFORE." PATIENT DENIES DIZZINESS/FAINT FEELING, DENIES CP/SOB, NO C/O N/V/D. ALERT AND ORIENTED TO SELF ONLY. AT BEDSIDE. PATIENT HAS INTERNAL PACEMAKER PLACED. PACED RHYTHM NOTED VARYING FROM 60-75 BPM. AT BEDSIDE. ALL MONITORING IN PLACE, VSS, NADN. CALL LIGHT IN REACH
--- NOTE | 2020-05-26 19:03 | NUR ---
PIV PLACED FOR ADMIT
--- NOTE | 2020-05-26 19:35 | NUR ---
PATIENT RESTING ON GURNEY, RESPIRATIONS EVEN AND UNLABORED. CRISTIAN, KEILY, IN ROOM AT THIS TIME, AWATING ROOM ASSIGNMENT.
--- NOTE | 2020-05-26 20:06 | NUR ---
REPORT GIVEN TO MAURO MAN. PLAN OF CARE DISCUSSED
[2020-05-26] MEDS ORDERED: hydrALAzine 20 MG/ML, 1ML IVPush PRN (20:30)
[2020-05-26] MEDS ORDERED: BISACODYL 10 MG SUPP PR PRN (20:30)
[2020-05-26] MEDS ORDERED: ACETAMINOPHEN 325 MG TABLET PO PRN (20:30)
[2020-05-26] MEDS ORDERED: POLYETHYLENE GLYCOL 17 GM PACKET PO PRN (20:30)
[2020-05-26] MEDS ORDERED: ONDANSETRON ODT 4 MG PO PRN (20:30)
[2020-05-26 21:02] VITALS: BP 149/69
[2020-05-26] MEDS: HEPARIN 5,000 UNITS/ML, 1ML SQ SCH (23:18)
[2020-05-26] MEDS: CARVEDILOL 6.25 MG TABLET PO SCH (23:19)
[2020-05-26] MEDS: CLINDAMYCIN PMX 300MG/50ML 50 ML IV SCH (23:26)
[2020-05-26] MEDS: SODIUM CHLORIDE 0.9% 1,000 ML IV SCH (23:27)
[2020-05-27] VITALS (10 sets, daily range): BP systolic 97–165; BP diastolic 55–85
[2020-05-27] MEDS: CLINDAMYCIN PMX 300MG/50ML 50 ML IV SCH (04:47)
[2020-05-27] MEDS: HEPARIN 5,000 UNITS/ML, 1ML SQ SCH ×3 (04:53→20:45)
[2020-05-27 05:19] LABS: BASOPHILS # (AUTO) 0.02 x10^3/uL (0-0.1); BASOPHILS % (AUTO) 1 % (0-1); EOSINOPHILS % (AUTO) 2 % (1-7); LYMPHOCYTES # (AUTO) 1.35 x10^3/uL (1-3.4); LYMPHOCYTES % (AUTO) 30 % (22-44); MD NO; MEAN CORPUSCULAR HEMOGLOBIN 30.8 pg (27.0-34.8); MEAN CORPUSCULAR HGB CONC 32.8 g/dL (32.4-35.8); MEAN PLATELET VOLUME 8.3 fL (7.4-10.4); MONOCYTES # (AUTO) 0.49 x10^3/uL (0.2-0.8); MONOCYTES % (AUTO) 11 % (2-9); NEUTROPHILS # (AUTO) 2.61 x10^3/uL (1.8-6.8); NEUTROPHILS % (AUTO) 57 % (42-75); PLATELET COUNT 167 x10^3/uL (130-400); RED BLOOD COUNT 3.68 x10^6/uL (3.82-5.3); RED CELL DISTRIBUTION WIDTH 12.9 % (9.6-15.2)
[2020-05-27 05:23] LABS: ANION GAP 7 mmol/L (5-15); CALCIUM 8.8 mg/dL (8.5-10.1); CHLORIDE 107 mmol/L (98-107); CREATININE 1.72 mg/dL (0.55-1.02)
[2020-05-27] MEDS ORDERED: PHARMACY MAY ADJ FOR RENAL FX MC PRN (10:30)
[2020-05-27] MEDS ORDERED: POTASSIUM CHLORIDE 20 MEQ TAB.ER.PRT PO ONE (10:30)
[2020-05-27] MEDS ORDERED: DIPHENHYDRAMINE 50 MG/ML, 1ML IVPush ONE (11:00)
[2020-05-27] MEDS ORDERED: DIPHENHYDRAMINE 25 MG CAPSULE PO PRN (11:00)
[2020-05-27] MEDS ORDERED: HYDROCORTISONE CRM 0.5%, 30GM TP PRN (11:00)
[2020-05-27] MEDS: ASPIRIN 81 MG TABLET EC PO SCH (11:20)
[2020-05-27] MEDS: CLOPIDOGREL 75 MG TABLET PO SCH (11:20)
[2020-05-27] MEDS: CARVEDILOL 6.25 MG TABLET PO SCH ×2 (11:20→20:46)
[2020-05-27] MEDS: SENNA/DOCUSATE TABLET PO SCH (11:21)
[2020-05-27] MEDS: SODIUM CHLORIDE 0.9% 1,000 ML IV SCH ×2 (12:32→22:00)
[2020-05-27] MEDS: CEFTRIAXONE PMX 1GM/50ML 50 ML IV SCH (12:32)
[2020-05-27 17:03] LABS: MICROSCOPIC NOT IND
[2020-05-28 01:38] VITALS: BP 139/61
[2020-05-28] MEDS: HEPARIN 5,000 UNITS/ML, 1ML SQ SCH ×2 (04:41→14:06)
[2020-05-28 05:14] LABS: BASOPHILS # (AUTO) 0.01 x10^3/uL (0-0.1); BASOPHILS % (AUTO) 0 % (0-1); EOSINOPHILS # (AUTO) 0.22 x10^3/uL (0-0.4); EOSINOPHILS % (AUTO) 6 % (1-7); LYMPHOCYTES # (AUTO) 0.86 x10^3/uL (1-3.4); LYMPHOCYTES % (AUTO) 21 % (22-44); MD NO; MEAN CORPUSCULAR HEMOGLOBIN 31.1 pg (27.0-34.8); MEAN CORPUSCULAR HGB CONC 33.1 g/dL (32.4-35.8); MONOCYTES # (AUTO) 0.31 x10^3/uL (0.2-0.8); MONOCYTES % (AUTO) 8 % (2-9); NEUTROPHILS # (AUTO) 2.67 x10^3/uL (1.8-6.8); NEUTROPHILS % (AUTO) 66 % (42-75); PLATELET COUNT 156 x10^3/uL (130-400); RED BLOOD COUNT 3.56 x10^6/uL (3.82-5.3); RED CELL DISTRIBUTION WIDTH 13.1 % (9.6-15.2)
[2020-05-28 05:15] LABS: ANION GAP 7 mmol/L (5-15); CALCIUM 8.4 mg/dL (8.5-10.1); CHLORIDE 116 mmol/L (98-107); CREATININE 1.39 mg/dL (0.55-1.02)
[2020-05-28 08:52] VITALS: BP 174/50
[2020-05-28] MEDS: ASPIRIN 81 MG TABLET EC PO SCH (10:46)
[2020-05-28] MEDS: CLOPIDOGREL 75 MG TABLET PO SCH (10:46)
[2020-05-28] MEDS: CARVEDILOL 6.25 MG TABLET PO SCH (10:46)
[2020-05-28] MEDS: SENNA/DOCUSATE TABLET PO SCH (10:46)
[2020-05-28] MEDS: CEFTRIAXONE PMX 1GM/50ML 50 ML IV SCH (14:00)
[2020-05-28] MEDS ORDERED: CEFD300C37 PO ×2 (14:18)
[2020-05-28 14:19] VITALS: BP 163/68
[2020-07-24] MEDS ORDERED: LEVE500T53 PO (12:07)
== END 2020-05-28 16:49 | disposition home or self-care (01) | DRG 57 ==
LOC: ED 18:50 → EDIP 18:57 → ED 19:15 → 5SO 20:29
PROVIDERS: ADMIT Family Medicine; ATTEND Hospitalist
DX: G20 Parkinson's disease (principal); N17.9 Acute kidney failure, unspecified; I95.1 Orthostatic hypotension; E03.4 Atrophy of thyroid (acquired); E78.00 Pure hypercholesterolemia, unspecified; E78.5 Hyperlipidemia, unspecified; F02.80 Dementia in other diseases classified elsewhere, unspecified severity, without behavioral disturbance, psychotic disturbance, mood disturbance, and anxiety; G30.1 Alzheimer's disease with late onset; G90.9 Disorder of the autonomic nervous system, unspecified; I13.10 Hypertensive heart and chronic kidney disease without heart failure, with stage 1 through stage 4 chronic kidney disease, or unspecified chronic kidney disease; I25.10 Atherosclerotic heart disease of native coronary artery without angina pectoris; I65.23 Occlusion and stenosis of bilateral carotid arteries; I73.9 Peripheral vascular disease, unspecified; N18.9 Chronic kidney disease, unspecified; Z82.49 Family history of ischemic heart disease and other diseases of the circulatory system; Z82.0 Family history of epilepsy and other diseases of the nervous system; Z95.0 Presence of cardiac pacemaker; I25.2 Old myocardial infarction; Z87.891 Personal history of nicotine dependence; Z86.718 Personal history of other venous thrombosis and embolism
CPT/HCPCS: 36415; 71045; 80048; 80053; 81003; 83735; 84439; 84443; 84484; 85025; 93005; 93306; 93880; 96374; 99285; G0378; J0696; J1644; J1200; J7030

== ENCOUNTER → 2020-05-31 | Outpatient (CLI) | payer MEDICARE, BC ==
[~2020-05-31] MED LIST changes: +CEFD300C37 PO
== END | disposition home or self-care (01) ==
LOC: WOUND 09:50
PROVIDERS: ATTEND Internal Medicine Infectious Disease
DX: L03.116 Cellulitis of left lower limb (principal); I82.532 Chronic embolism and thrombosis of left popliteal vein; G30.1 Alzheimer's disease with late onset; F02.80 Dementia in other diseases classified elsewhere, unspecified severity, without behavioral disturbance, psychotic disturbance, mood disturbance, and anxiety; I25.10 Atherosclerotic heart disease of native coronary artery without angina pectoris; E78.5 Hyperlipidemia, unspecified; I25.2 Old myocardial infarction; G20 Parkinson's disease; I73.9 Peripheral vascular disease, unspecified; E78.00 Pure hypercholesterolemia, unspecified; I13.0 Hypertensive heart and chronic kidney disease with heart failure and stage 1 through stage 4 chronic kidney disease, or unspecified chronic kidney disease; I50.9 Heart failure, unspecified; N18.9 Chronic kidney disease, unspecified; Z87.891 Personal history of nicotine dependence; Z88.0 Allergy status to penicillin; Z95.0 Presence of cardiac pacemaker
CPT/HCPCS: G0463

== ENCOUNTER 2020-06-26 10:11 | Emergency (ER) | payer MEDICARE, BC ==
[~2020-06-26] VITALS: Ht 175.3 cm; Wt 70.0 kg
[2020-06-26] MEDS ORDERED: SODIUM CHLORIDE FLUSH 10ML SYR IVF ONE (11:00)
--- NOTE | 2020-06-26 11:05 | NUR ---
PT CAME IN CO OF COUGH, CP, AND CONFUSION. PT HAS DEMENTIA AND IS A0X4 BUT IS STILL SLIGHTLY CONFUSED. SAYS SHE IS A LITTLE MORE CONFUSED THAN LATELY. PT IS CONNECTED TO ALL MONITORING EQUIPMENT. UA SENT. LABS DRAWN. BLANKET PROVIDED.
[2020-06-26 11:09] LABS: MICROSCOPIC NOT IND
[2020-06-26 11:19] LABS: BASOPHILS # (AUTO) 0.01 x10^3/uL (0-0.1); BASOPHILS % (AUTO) 0 % (0-1); EOSINOPHILS # (AUTO) 0.01 x10^3/uL (0-0.4); EOSINOPHILS % (AUTO) 0 % (1-7); LYMPHOCYTES # (AUTO) 0.81 x10^3/uL (1-3.4); LYMPHOCYTES % (AUTO) 9 % (22-44); MD NO; MEAN CORPUSCULAR HEMOGLOBIN 31.1 pg (27.0-34.8); MEAN CORPUSCULAR VOLUME 94.3 fL (80-100); MEAN PLATELET VOLUME 8.7 fL (7.4-10.4); MONOCYTES # (AUTO) 0.64 x10^3/uL (0.2-0.8); MONOCYTES % (AUTO) 7 % (2-9); NEUTROPHILS # (AUTO) 7.59 x10^3/uL (1.8-6.8); NEUTROPHILS % (AUTO) 84 % (42-75); PLATELET COUNT 189 x10^3/uL (130-400); RED BLOOD COUNT 4.22 x10^6/uL (3.82-5.3); RED CELL DISTRIBUTION WIDTH 13.7 % (9.6-15.2)
--- NOTE | 2020-06-26 11:23 | NUR ---
PT RESTING IN [facility]. BEDSIDE. VSS.
[2020-06-26 11:27] LABS: ALANINE AMINOTRANSFERASE 26 U/L (12-78); ALBUMIN 3.8 g/dL (3.4-5.0); ANION GAP 11 mmol/L (5-15); CHLORIDE 103 mmol/L (98-107); CREATININE 1.68 mg/dL (0.55-1.02)
[2020-06-26 11:45] LABS: ALKALINE PHOSPHATASE 82 U/L (45-117); TOTAL PROTEIN 7.5 g/dL (6.4-8.2); TROPONIN I < 0.015 ng/mL (0.000-0.045)
[2020-06-26 11:56] VITALS: BP 131/61
--- NOTE | 2020-06-26 11:57 | NUR ---
IV FLUIDS INFUSING AT THIS TIME
[2020-06-26] MEDS ORDERED: SODIUM CHLORIDE 0.9% 1,000ML IVBOLUS ONE (12:00)
== END 2020-06-26 13:23 | disposition home or self-care (01) ==
LOC: ED 10:52
DX: R11.2 Nausea with vomiting, unspecified (principal); R05 Cough; G30.1 Alzheimer's disease with late onset; F02.80 Dementia in other diseases classified elsewhere, unspecified severity, without behavioral disturbance, psychotic disturbance, mood disturbance, and anxiety; E86.0 Dehydration; R07.89 Other chest pain; R94.31 Abnormal electrocardiogram [ECG] [EKG]; I10 Essential (primary) hypertension; E78.00 Pure hypercholesterolemia, unspecified; E78.5 Hyperlipidemia, unspecified; E03.9 Hypothyroidism, unspecified; I25.2 Old myocardial infarction; Z90.89 Acquired absence of other organs; Z95.0 Presence of cardiac pacemaker
CPT/HCPCS: 36415; 71045; 80053; 81003; 83605; 83880; 84484; 85025; 93005; 99285; J7030

== ENCOUNTER → 2020-08-08 | Outpatient (CLI) | payer MEDICARE, BC ==
[~2020-08-08] MED LIST changes: +LEVE500T53 PO
== END | disposition home or self-care (01) ==
LOC: RAD 14:43
PROVIDERS: ATTEND Family Medicine
DX: R05 Cough (principal)
CPT/HCPCS: 71046

== ENCOUNTER → 2021-01-31 | Outpatient (CLI) | payer MEDICARE ==
[~2021-01-31] MED LIST changes: +AMLO-211 PO; -AMLO10TA8 PO
== END | disposition home or self-care (01) ==
LOC: RAD 16:08
PROVIDERS: ATTEND Family Medicine
DX: M25.511 Pain in right shoulder (principal)

== ENCOUNTER 2021-04-22 21:45 | Emergency (ER) | payer MEDICARE ==
[~2021-04-22] VITALS: Ht 162.6 cm; Wt 60.0 kg
[~2021-04-22 21:45] MED LIST changes: +APIX5TAB PO; +DOXA1TAB PO; +LINE600T15 PO; +METO5TAB2 PO; +METO5TAB57 PO; +OMEP-110 PO; +ONDA4TAB13 PO
--- NOTE | 2021-04-22 21:53 | NUR ---
KATHERINE FROM [facility] [id number]. PT C/O OF LEFT HEEL WOUND. WOUND IS WRAPPED WITH GAUZE. PT A&OX1, BREATHING EVEN AND UNLABORED. PT BARELY SPEAKS. ATTACHED TO CARD/SP02/BP MONITORS. VSS, NADN. BED IN LOW POSITION, RAILS ENGAGED, CALL LIGHT ON LAP PT RESTING IN BED COMFORTABLY. GIVEN BLANKETS. PTS F/C APPEARS TO HAVE CLOUDY TEA COLORED URINE WITH SEDIMENT CLUMPS ALL IN CATHETER TUBING. PT VERY POOR HISTORIAN. DOES NOT KNOW ANY ANSWERS TO ALMOST ALL QUESTIONS HX OF DEMENTIA, AFIB, AND APPEARS TO HAVE PACEMAKER.
--- NOTE | 2021-04-22 22:06 | NUR ---
[facility] ABOUT PTS CONDITIION INCLUDING FOOT, URINE, AND MEDS. TALKED TO JAZ AND SHE DOES NOT KNOW HOW INJURY HAPPENED OR HOW LONG. TALKED TO ALEJANDRA AND HE STATES PT CAME TO FACILITY WITH FOOT WOUND AND HOME HEALTH WAS SUPPOSED TO BE TAKING CARE OF CONDITION. HAS BEEN LIKE THIS FOR MORE THAN A MONTH BUT HAS BEEN GETTING WORSE. NO INFO REGARDING HOW LONG CATHETER HAS BEEN IN BAD CONDITION. ALEJANDRA STATES BLOOD HAS BEEN SEEN IN CATHETER IN PAST. ALEJANDRA STATES HOME HEALTH CAME TO TAKE CARE OF IT TODAY WHEN IT POPPED AND GOT WORSE. ALEJANDRA IS HELPING WITH MED REC.
--- NOTE | 2021-04-22 22:13 | NUR ---
ALEJANDRA NURSE FROM [facility] SAID LAST NIGHT PT HAS HAD CATHETER IN FOR A REALLY LONG TIME AND DOESNT KNOW WHY IT WAS PUT IN.
[2021-04-22] MEDS ORDERED: TIMOLOL (22:16)
[2021-04-22] MEDS ORDERED: ATOR20TA37 PO (22:16)
--- NOTE | 2021-04-22 22:27 | NUR ---
Patient is sleping comfortably in bed. eyes closed. nadn. breathing even and unlabored. Bed in lowest, rails engaged, call light on lap. Vital Signs within normal limits. WCTM.
[2021-04-22 22:33] LABS: BASOPHILS % (AUTO) 0 % (0-1); EOSINOPHILS % (AUTO) 1 % (1-7); LYMPHOCYTES % (AUTO) 20 % (22-44); MEAN CORPUSCULAR HEMOGLOBIN 28.8 pg (27.0-34.8); MEAN CORPUSCULAR HGB CONC 33.5 g/dL (32.4-35.8); MEAN PLATELET VOLUME 8.4 fL (7.4-10.4); MONOCYTES % (AUTO) 11 % (2-9); NEUTROPHILS % (AUTO) 68 % (42-75); PLATELET COUNT 219 x10^3/uL (130-400); RED BLOOD COUNT 3.73 x10^6/uL (3.82-5.3); RED CELL DISTRIBUTION WIDTH 14.7 % (9.6-15.2)
[2021-04-22 22:40] LABS: ANION GAP 10 mmol/L (5-15); CHLORIDE 108 mmol/L (98-107); CREATININE 1.52 mg/dL (0.55-1.02)
--- NOTE | 2021-04-22 23:04 | NUR ---
PT F/C REMOVED DUE TO CONTAMINATION. NEW F/C INSERTED PER HOSPITAL PROTOCOL. PT TOLERATED WELL. PT VSS. NADN. PT RESTING IN BED. CALL LIGHT ON LAP. TM
[2021-04-22] MEDS ORDERED: NEOSPORIN OINT. PKT 1 PACKET ONE (23:34)
--- NOTE | 2021-04-22 23:37 | NUR ---
PT WOUND CLEANSED WITH SOAP AND WATER, WOUND CLEANSER, AND DRESSED WITH KRELEX AND NEOMYCIN. PA CUT BLISTER FLAPS OFF PER HER PROTOCOL. ,
--- NOTE | 2021-04-22 23:54 | NUR ---
obtained Urine sample after f/c placed. MD asked if he wanted to put in a order for UA but order was not recommended per MD. Urine was sedimented, cloudy, and tea colored. pt in nad. vss. wctm.
--- NOTE | 2021-04-23 00:15 | NUR ---
Patient is resting comfortably in bed. Bed in lowest, rails engaged, call light on lap. Vital Signs within normal limits. WCTM.
--- NOTE | 2021-04-23 00:18 | NUR ---
SPOKE TO ALEJANDRA ON THE PHONE AT [facility] AND HE STATED THAT HIS FACILITY WILL ACCEPT PT BACK TO FACILITY. OBTAINING TRANSPORT AND PT IS READY TO GO BACK HOME PER DOCTORS ORDERS. PT MEDICALLY CLEARED.
--- NOTE | 2021-04-23 00:26 | NUR ---
PT HAD SMALL BM. LIGHT BROWN AND SOFT. PT CLEANSED AND PUT INTO A NEW BRIEF.
[2021-04-23 01:20] VITALS: BP 130/54
--- NOTE | 2021-04-23 01:22 | NUR ---
DISCHARGED PT BACK TO [facility]. INFORMED ALEJANDRA WE WOULD BE SENDING HER BACK. SENT PT HOME WITH DC INSTRUCTIONS, AND AIR MATTRESS TO HELP HEAL WOUND. PT WAS TAKEN HOME ON GURNEY VIA [facility]. PT TOLERATED WELL. PT WENT HOME WITH BLANKETS. PT WENT HOME WITH PERSONAL WHEELCHAIR. NO BELONGING LEFT IN ROOM.
--- NOTE | 2021-04-23 01:22 | NUR ---
Alexey elias in [facility] - 04/23/21 at 0122 by [email or web address] PT DISCHARGED
== END 2021-04-23 23:22 | disposition home or self-care (01) ==
LOC: ED 23:16
DX: L89.622 Pressure ulcer of left heel, stage 2 (principal); L89.612 Pressure ulcer of right heel, stage 2; T83.091A Other mechanical complication of indwelling urethral catheter, initial encounter; R62.7 Adult failure to thrive; I10 Essential (primary) hypertension; I25.2 Old myocardial infarction; E78.5 Hyperlipidemia, unspecified; E78.00 Pure hypercholesterolemia, unspecified; E03.9 Hypothyroidism, unspecified; Z68.22 Body mass index [BMI] 22.0-22.9, adult; G30.1 Alzheimer's disease with late onset; F02.80 Dementia in other diseases classified elsewhere, unspecified severity, without behavioral disturbance, psychotic disturbance, mood disturbance, and anxiety
CPT/HCPCS: 36415; 80048; 85025; 99284

== ENCOUNTER 2021-04-29 09:05 | Emergency (ER) | payer MEDICARE ==
[~2021-04-29] VITALS: Ht 180.3 cm; Wt 75.0 kg
[~2021-04-29 09:05] MED LIST changes: +ATOR20TA37 PO; +TIMOLOL
--- NOTE | 2021-04-29 09:25 | NUR ---
ELVIA STAUFFER- SHE IS PT AT [facility]. DURING BREAKFAST PT WAS UNRESPONSIVE, AND ACCORDING TO STAFF THERE IS SLOW TO RESPOND WHICH IS ALTERED FROM HER BASELINE. BLOOD SUGAR WAS 117, AND EKG WAS FINE W/ SOME ATRIAL RHYTHM AND PVC. NO OTHER INTERVTIONS PAPER TUBE GRADER. [facility] BELIEVES POSSIBLE SZ, THOUGH THEY DID NOT WITNESS THIS. pt in gown, hooked up to bp, vs and injection operator. pt is a poor historian and very slow to respond. Pt has seizure pads in place just in case she did have seizure. VSS, NADN, call light w/in reach.
--- NOTE | 2021-04-29 10:15 | NUR ---
pt resting in gurney, vss, nadn, call light w/in reach.
[2021-04-29 10:20] LABS: BASOPHILS % (AUTO) 0 % (0-1); EOSINOPHILS % (AUTO) 2 % (1-7); LYMPHOCYTES % (AUTO) 24 % (22-44); MEAN CORPUSCULAR HGB CONC 33.8 g/dL (32.4-35.8); MEAN PLATELET VOLUME 8.3 fL (7.4-10.4); MONOCYTES % (AUTO) 9 % (2-9); NEUTROPHILS % (AUTO) 65 % (42-75); PLATELET COUNT 237 x10^3/uL (130-400); RED BLOOD COUNT 3.74 x10^6/uL (3.82-5.3); RED CELL DISTRIBUTION WIDTH 14.5 % (9.6-15.2)
[2021-04-29 10:33] LABS: ALBUMIN 2.9 g/dL (3.4-5.0); ANION GAP 9 mmol/L (5-15); CALCIUM 8.9 mg/dL (8.5-10.1); CHLORIDE 110 mmol/L (98-107)
[2021-04-29 10:37] LABS: ALANINE AMINOTRANSFERASE 32 U/L (12-78); ALKALINE PHOSPHATASE 93 U/L (45-117); BILIRUBIN,TOTAL 0.9 mg/dL (0.2-1.0); CREATININE 1.04 mg/dL (0.55-1.02); TOTAL PROTEIN 6.8 g/dL (6.4-8.2)
--- NOTE | 2021-04-29 10:54 | NUR ---
pt resting in [facility], stated she is chilly and was provided a blanket. harika garcia. call light w/in reach.
[2021-04-29 11:00] LABS: MICROSCOPIC INDICATED
--- NOTE | 2021-04-29 11:42 | NUR ---
PT SLEEPING IN GURNEY, SIDE RAIL X2, VSS. CALL LIGHT W/IN REACH.
--- NOTE | 2021-04-29 12:10 | NUR ---
PT STILL RESTING, NADN. THROUGHPUT MADE AWARE TRANSPORT WILL NEED TO BE ARRANGED.
--- NOTE | 2021-04-29 12:36 | NUR ---
CALLED [phone] FOR MICHAEL MENDOZA WHICH WAS LISTED ON PAPERWORK AND NO ONE ANSWERED, UNABLE TO LEAVE MESSAGE. [phone] ON WEB SITE, SIMILAR SITUATION. WANTED TO NOTIFY THEM OF PT DC AND TO ARRANGE MANAGER OF SECURITY. PUBLIC HEALTH ASSISTANT AWARE
--- NOTE | 2021-04-29 13:02 | NUR ---
SPOKE WITH MONORAIL OPERATOR AT [facility], STATED THEY WILL NOT TAKE THIS PT BACK SHE IS NOT EATING AND HAS A WOUND, AND REQUIRES CUSTODIAL. SHRADDHA LOW THE DIRECTOR [phone] CAN BE CALLED WITH ANY FURTHER QUESTIONS PER [facility] MONORAIL OPERATOR.
--- NOTE | 2021-04-29 13:04 | NUR ---
BIOMASS PLANT TECHNICIAN RECEIVED CALL FROM [facility] IN WHICH THEY STATED THEY ARE NOT ACCEPTING PATIENT BACK. THROUGH PUT CALLED CASE MANAGEMENT AND I JUST SPOKE TO HER INFORMING HER ABOUT THE PATIENT AND SHE WILL BE DONE SHORTLY.
--- NOTE | 2021-04-29 13:20 | NUR ---
TASK RN: CASE MANAGEMENT AT BEDSIDE. DRESSED WOUNDS NOTED TO BILAT HEELS. MINIMAL PT PARTICIPATION IN TURNING, UNABLE TO ASSESS SKIN OVER SACRUM. THOUGH SKIN NON-TENDER TO PALPATION.
[2021-04-29 13:57] VITALS: BP 149/64
--- NOTE | 2021-04-29 13:58 | NUR ---
RECEIVED UPDATE FROM JULIETTE RN. PT SLEEPING IN [facility]. CM JUST HERE AND STATED PT CAN GO BACK TO THE FACILITY, JUST NEED TO ARRANGE TRANSPORT AND GIVE REPORT.
--- NOTE | 2021-04-29 14:02 | NUR ---
SBAR REPORT GIVEN TO KASEY, SHE JUST ASKED FOR THE D/C PAPERWORK. THROUGHPUT TO WORK ON TRANSPORT.
--- NOTE | 2021-04-29 14:07 | NUR ---
THROUGHTPUT: CALLED [facility], FAXED PCS TO [facility], SWITCHBOARD MANAGER AT [phone]
== END 2021-04-29 14:40 | disposition home or self-care (01) ==
LOC: ED 12:12
DX: R41.82 Altered mental status, unspecified (principal); I10 Essential (primary) hypertension; I44.7 Left bundle-branch block, unspecified
CPT/HCPCS: 36415; 80053; 81001; 85025; 87086; 93005; 99285